=== PATIENT | female | born 1955 | race Caucasian/White ===

== ENCOUNTER 2018-01-18 08:33 | Emergency (ER) | payer BC ==
[~2018-01-18] VITALS: Ht 160 cm; Wt 81.7 kg
[~2018-01-18 08:33] MED LIST: ASCO500 PO; ASPI325EC PO; ASPI81CH PO; CALCIT950 PO; ERGO400 PO; ESTR.625; ESTR2 PO; LOSHYD PO; NAPR500 PO; OMEG1CAP30 PO; OXYACE5T PO; Omeprazole20 M1 PO; TOCO400 PO; TRIA80TC TOP; VITAMENS
[2018-01-18] MEDS ORDERED: Norco 5-325 Ta1 EACH PO (09:23)
[2018-01-18] MEDS ORDERED: DICL75ER PO (09:23)
== END 2018-01-18 09:47 | disposition home or self-care (01) ==
LOC: ER 08:33
DX: M76.32 Iliotibial band syndrome, left leg (principal); M76.31 Iliotibial band syndrome, right leg; Z88.2 Allergy status to sulfonamides; Z88.5 Allergy status to narcotic agent; Z88.8 Allergy status to other drugs, medicaments and biological substances; Z79.899 Other long term (current) drug therapy; Z79.82 Long term (current) use of aspirin
CPT/HCPCS: 96372; 99283; J3301

== ENCOUNTER 2023-06-21 11:55 | Day surgery (SDC) | payer MEDICARE ==
[~2023-06-21] VITALS: Ht 160 cm; Wt 82.4 kg
[~2023-06-21 11:55] MED LIST changes: +DICL75ER PO; +Norco 5-325 Ta1 EACH PO
[2023-06-21] MEDS ORDERED: OMEP20ER PO (12:43)
[2023-06-21] MEDS ORDERED: ASPIR 8181 MG PO (12:45)
--- NOTE | 2023-06-21 14:34 | NUR ---
06/21/23 1434 Radha Schneider 20ML OF ROPIVACAINE 0.5% MIXED AND VERIFIED WITH 0.1ML OF EPI (1MG/ML) TO MAKE ROPIVACAINE 0.5% WITH EPI 1:200,000 FOR INJECTION AT THE OPSITE BY DR LOYA.
[2023-06-21 16:03] VITALS: BP 130/71
--- NOTE | 2023-06-21 16:05 | NUR ---
06/21/23 1605 Vivian Husain PATIENT UP IN RECLINER WITH R ARM ELEVATED ON PILLOW AND ICE PACK. MEDICATED WITH 25MCG FENTANYL IV X1 AT 1555 BUT PATIENT REPORTED NO RELIEF IN PAIN. 2ND DOSE OF FENTANYL 25MCG IV GIVEN AT 1601. WILL CONTINUE TO MONITOR. AT CHAIRSIDE.
== END 2023-06-21 16:59 | disposition home or self-care (01) ==
LOC: ORSCSDS 11:55
PROVIDERS: Orthopaedic Surgery
PROC: 01N50ZZ Release Median Nerve, Open Approach (ICD-10-PCS; principal; 2023-06-21 13:30)
PROC: 01N40ZZ Release Ulnar Nerve, Open Approach (ICD-10-PCS; principal; 2023-06-21 13:30)
DX: G56.21 Lesion of ulnar nerve, right upper limb (principal); G56.01 Carpal tunnel syndrome, right upper limb; K21.9 Gastro-esophageal reflux disease without esophagitis; I10 Essential (primary) hypertension; E66.9 Obesity, unspecified; Z68.32 Body mass index [BMI] 32.0-32.9, adult; Z79.899 Other long term (current) drug therapy
CPT/HCPCS: A9270; J0171; J0690; J1100; J2405; J2704; J2765; J2795; J3010; J7120

== ENCOUNTER 2025-07-27 12:14 | Day surgery (SDC) | payer MEDICARE ==
[2025-07-27] VITALS (14 sets, daily range): BP systolic 121–167; BP diastolic 78–98
[~2025-07-27] VITALS: Ht 160 cm; Wt 63.0 kg
[~2025-07-27 12:14] MED LIST changes: +ASPIR 8181 MG PO; +DOTTI1 EA18 TOP; +IBU800 M1 PO; +LOSA50 PO; +OMEP20ER PO
[2025-07-27] MEDS ORDERED: CeFAZolin Sodium 2,000 MG in NS 100 ML IV SCH (13:05)
--- NOTE | 2025-07-27 13:54 | NUR ---
Ambulatory in Day Surgery. History, Chart, Medications and Allergies reviewed before start of procedure. Patient confirms NPO status and agrees with scheduled surgery. Pre-Op teaching done. Pt verbalizes understanding. Patient States Post-Procedure ride home has been arranged. Pt belongings placed underneath [facility] for safekeeping.
[2025-07-27] MEDS ORDERED: Midazolam HCl 1MG / ML 2ML Vial IV PRN (14:40)
[2025-07-27] MEDS ORDERED: FentaNYL Citrate 50 MCG/ML 2 ML Injection ONE ×3 (15:39→19:02)
[2025-07-27] MEDS ORDERED: CeFAZolin Sodium 2,000 MG VIAL ONE (15:47)
[2025-07-27] MEDS ORDERED: Rocuronium Bromide 10 MG/ML 5ML Injection IV ONE (15:47)
[2025-07-27] MEDS ORDERED: NS 100 ML IV ONE (15:47)
[2025-07-27] MEDS ORDERED: Bupivacaine 0.5% W/EPI 1:200000 SDV 30 ML Vial ONE (16:10)
[2025-07-27] MEDS ORDERED: EPINEPhrine HCl 1 MG / ML 30ML Vial ONE (16:10)
[2025-07-27] MEDS ORDERED: Ondansetron HCl 2 MG / ML 2ML Vial ONE (16:35)
[2025-07-27] MEDS ORDERED: Dexamethasone Sod Phos 10 MG/ML 1ML VIAL ONE (16:35)
[2025-07-27] MEDS ORDERED: Phenylephrine HCl 100 MCG/ML-NS 10MLSYR (1MG/10ML) ONE (16:38)
[2025-07-27] MEDS ORDERED: Glycopyrrolate 0.2 MG/ML 5ML VIAL ONE (16:39)
[2025-07-27] MEDS ORDERED: Magnesium Hydroxide Conc 10 ML UDC PO PRN (18:35)
[2025-07-27] MEDS ORDERED: HYDROmorphone HCl/Pf 1MG SYR ONE (18:46)
[2025-07-27] MEDS ORDERED: Ketorolac Tromethamine 30mg Vial ONE (18:51)
[2025-07-27] MEDS ORDERED: Metoclopramide HCl 5MG / ML 2ML Vial ONE (18:53)
[2025-07-27] MEDS ORDERED: OxyCODONE 5 mg/Acetamin 325 mg TABLET PO PRN (19:30)
== END 2025-07-27 19:00 | disposition home or self-care (01) ==
LOC: SURS 12:14 → ORSCMMR 12:14 → UNDOADMIN 12:14 → EDSTATUS 13:45 → SURS 19:00 → ORSCMMR 19:00
PROVIDERS: Orthopaedic Surgery
PROC: 0SRD0N9 Replacement of Left Knee Joint with Patellofemoral Synthetic Substitute, Cemented, Open Approach (ICD-10-PCS; 2025-07-27)
PROC: 0SBD4ZZ Excision of Left Knee Joint, Percutaneous Endoscopic Approach (ICD-10-PCS; 2025-07-27)
PROC: 3E03329 Introduction of Other Anti-infective into Peripheral Vein, Percutaneous Approach (ICD-10-PCS; principal; 2025-07-27 15:00)
DX: M84.352A Stress fracture, left femur, initial encounter for fracture (principal); Z96.642 Presence of left artificial hip joint; M17.12 Unilateral primary osteoarthritis, left knee; Z88.2 Allergy status to sulfonamides; Z88.5 Allergy status to narcotic agent; Z88.8 Allergy status to other drugs, medicaments and biological substances; Z90.710 Acquired absence of both cervix and uterus; Z90.89 Acquired absence of other organs; Z98.890 Other specified postprocedural states; Z90.721 Acquired absence of ovaries, unilateral
CPT/HCPCS: 73560-LT; A9270; C1713; J0165; J0690; J1100; J1171; J1885; J2371; J2405; J2704; J2765; J3010; J7120